=== PATIENT | male | born 1990 | race Caucasian/White ===

== ENCOUNTER → 2020-05-01 13:18 | Outpatient (CLI) | payer OTHER, SELFPAY ==
[2020-05-02 14:29] LABS: COVID19 Sendout Not Detected (Not Detect)
== END ==
PROVIDERS: Family Provider Family Medicine; Visit Provider Physician Assistant
DX: Z03.818 Encounter for observation for suspected exposure to other biological agents ruled out (principal)
CPT/HCPCS: 87635